=== PATIENT | female | born 1985 | race Caucasian/White ===

== ENCOUNTER 2017-11-15 15:33 | Outpatient (CLI) | payer BC | END 2017-11-15 15:34 | disposition home or self-care (01) | LOC: BICMAMMO 15:33 | PROVIDERS: ATTEND Obstetrics & Gynecology | DX: Z12.31 Encounter for screening mammogram for malignant neoplasm of breast (principal); Z80.3 Family history of malignant neoplasm of breast | CPT/HCPCS: 77063; 77067 ==

== ENCOUNTER 2019-11-01 07:19 | Day surgery (SDC) | payer BC ==
[2019-10-30 11:53] VITALS: BMI 26.9
[2019-11-01] MEDS ORDERED: PROPOFOL 20 ML ONE (08:42)
[2019-11-01] MEDS ORDERED: Fentanyl 100 MCG/2 ML VIAL ONE (10:41)
[2019-11-01] MEDS ORDERED: Midazolam HCl 2 mg/2 ml Vial ONE (10:41)
[2019-11-01] MEDS ORDERED: Lidocaine 2% w/Epinephrine 1:200K 20 ML VIAL ONE (10:46)
[2019-11-01] MEDS ORDERED: Dexamethasone 20 MG/5 ML VIAL ONE (10:46)
[2019-11-01] MEDS ORDERED: PROPOFOL 200 MG/20 ML VIAL ONE (10:46)
[2019-11-01] MEDS ORDERED: Bupivacaine PF 0.5% 30 ML VIAL ONE (10:46)
[2019-11-01] MEDS ORDERED: Ketorolac Tromethamine 30 MG/ML VIAL ONE (10:46)
[2019-11-01] MEDS ORDERED: Ondansetron PF 4 MG/2 ML Vial ONE (10:46)
[2019-11-01] MEDS ORDERED: Lidocaine 1% PF 5 ML VIAL ONE (10:46)
--- NOTE | 2019-11-01 15:21 | OP ---
DATE OF PROCEDURE: 11/01/2019 PREOPERATIVE DIAGNOSIS: Right knee lateral meniscal tear. POSTOPERATIVE DIAGNOSES: 1. Right knee medial meniscus tear. 2. Grade 2 cartilage flap, lateral tibial plateau. PROCEDURES PERFORMED: 1. Right knee arthroscopy with debridement and shaving of lateral tibial plateau. 2. Partial medial meniscectomy. SECTION HAND HELPER: None. ESTIMATED BLOOD LOSS: Minimal. COMPLICATIONS: None. ANESTHESIA: The patient had a general anesthetic as well as a local knee block. DISPOSITION: She went to recovery room in stable condition. INDICATIONS: This is a 34-year-old female, who has had problems with her knees for approximately 2 years. At this time, she is tired of dealing with the pain and discomfort and occasional swelling. DESCRIPTION OF PROCEDURE: After all appropriate consent forms were explained and signed, she was taken back to the operating room and at this time was given general anesthetic. Once the level of anesthesia was appropriate, tourniquet was placed on the right thigh. Leg was then placed in arthroscopic leg kaiser. The limb was then prepped and draped in standard surgical fashion. The limb was exsanguinated and tourniquet was taken to 300 mmHg. Inferolateral portal was established. Scope was placed into the knee joint. Needle localization technique was then used to make a medial working portal. Diagnostic arthroscopy commenced in the notch. The ACL and PCL were probed, found to be intact. Medial compartment was evaluated. The cartilage on the femur and tibia were in good condition. There was a small tear noted in the body of the medial meniscus and a partial meniscectomy was performed using meniscal biter and shaver. There was also no small tear located in the very posterior horn that was taken down with a shaver only. At this time, we turned our attention to the lateral compartment. The femur was in good condition. Lateral meniscus was intact. Popliteus was intact, but upon probing, there was an unstable chondral flap on the lateral tibial plateau. This was taken back down to a stable base using the shaver. At this time, the gutters were swept through no loose bodies were noted. The patellofemoral joint was evaluated and found to be in excellent condition. The suprapatellar pouch showed no loose bodies. At this time, scope was removed. Knee was drained and portals were closed with simple nylon stitch. A bulky sterile dressing was applied and at this time, tourniquet was let down. Toes pinked up nicely. The patient was awakened, taken to the recovery room in stable condition. All counts were correct at the end of the case. She did receive preoperative IV antibiotics. Job ID: [id number]
== END 2019-11-01 14:15 | disposition home or self-care (01) ==
LOC: SDC 07:19
PROVIDERS: ATTEND Orthopaedic Surgery
PROC: 0SBC4ZZ Excision of Right Knee Joint, Percutaneous Endoscopic Approach (ICD-10-PCS; principal; 2019-11-01)
DX: S83.241A Other tear of medial meniscus, current injury, right knee, initial encounter (principal); M94.8X8 Other specified disorders of cartilage, other site; M51.26 Other intervertebral disc displacement, lumbar region; F32.9 Major depressive disorder, single episode, unspecified; F41.9 Anxiety disorder, unspecified; I10 Essential (primary) hypertension; G25.81 Restless legs syndrome; Z79.899 Other long term (current) drug therapy
CPT/HCPCS: J0690; J2250; J2704; J3010

== ENCOUNTER 2021-11-03 08:20 | Outpatient (CLI) | payer BC | END 2021-11-03 08:21 | disposition home or self-care (01) | LOC: BICMAMMO 08:20 | PROVIDERS: ATTEND Obstetrics & Gynecology | DX: Z12.31 Encounter for screening mammogram for malignant neoplasm of breast (principal); Z80.3 Family history of malignant neoplasm of breast | CPT/HCPCS: 77063; 77067 ==